=== PATIENT | male | born 1990 | race American Indian/Alaskan Native ===

== ENCOUNTER 2016-10-03 09:07 | Day surgery (SDC) | payer MEDICAID ==
[2016-10-03 09:55] VITALS: BMI 17.8
[2016-10-03] MEDS ORDERED: Propofol 10 mg/ml Inj (20 ML) ONE (12:52)
[2016-10-03] MEDS ORDERED: Lidocaine Hydrochloride 5 ML INJ ONE (12:52)
[2016-10-03 13:33] VITALS: TEMP 98.6
[2016-10-03 13:48] VITALS: O2SAT 98
[2016-10-03 15:54] VITALS: BP 121/67; PULSE 77; RESP 14
== END 2016-10-03 15:10 | disposition home or self-care (01) ==
LOC: C.ENDO 09:07
PROVIDERS: ATTEND Internal Medicine Gastroenterology
DX: K29.50 Unspecified chronic gastritis without bleeding (principal); R10.13 Epigastric pain
CPT/HCPCS: 43239; 88305; 88313; 88342; J2704

== ENCOUNTER 2016-10-12 16:55 | Emergency (ER) | payer MEDICAID ==
[2016-10-12 16:55] VITALS: BMI 17.8
[2016-10-12 17:09] VITALS: BP 103/66; PULSE 66; RESP 16; TEMP 97.8; O2SAT 98
--- NOTE | 2016-10-12 17:29 | C.PDOC ---
History Of Present Illness 26 yo male, hx of gastritis, presents with abdominal pain. pt states pain started yesterday. as per pt, had egd last week. review of records shows previous egd showing gastritis. as per pt, started having cramping and abdominal pain after started triple therapy yesterday. pt attributes pain and cramps to new medications. pt states "he had high fever". pt states had diarrhea. pt reports lower abdominal pain. no n/v Time Seen by Provider: 10/12/16 17:15 Chief Complaint (Nursing): Abdominal Pain Past Medical History Reviewed: Historical Data, Nursing Documentation, Vital Signs Vital Signs: Last Vital Signs Temp 97.8 F 10/12/16 17:03 Pulse 66 10/12/16 17:03 Resp 16 10/12/16 17:03 BP 103/66 10/12/16 17:03 Pulse Ox 98 10/12/16 17:48 - Medical History PMH: Denies: Chronic Kidney Disease Family History: States: Unknown Family Hx - Social History Hx Alcohol Use: No Hx Substance Use: No Review Of Systems Except As Marked, All Systems Reviewed And Found Negative. Gastrointestinal: Positive for: Abdominal Pain, Diarrhea Physical Exam - Physical Exam Appears: Well, No Acute Distress Skin: Normal Color, Warm, Dry Eye(s): bilateral: Normal Inspection, PERRL, EOMI Nose: Normal Throat: Normal Neck: Normal Cardiovascular: Rhythm Regular Respiratory: Normal Breath Sounds Gastrointestinal/Abdominal: Normal Exam, Soft, Tenderness (mild suprapubic. ), No Guarding, No Rebound Back: Normal Inspection Extremity: Normal ROM ED Course And Treatment O2 Sat by Pulse Oximetry: 98 Against Medical Advice - AMA Patient Left Against Medical Advice: The patient declines admission to the hospital and wishes to leave the Emergency Department. This action is against my medical advice. This decision was made with informed refusal. The patient was told that admission to the hospital is necessary. Explanation of the reasons why were discussed. The risks of leaving were explained to the patient and include, but are not limited to, worsening of known or currently unknown conditions, permanent disability and from undiagnosed or untreated conditions. The patient has the capacity to make this informed decision and understands my explanation of the current medical problem and risks of leaving. The patient voluntarily accepts these risks and signed an AMA form documenting our conversation. The patient was given the opportunity to ask questions and reconsider. The patient was encouraged to return to the Emergency Department at any time for further care. Medical Decision Making Medical Decision Making: possible reaction to medications vs gastroenteritis, uti, colitis, appendicitis. - requests labs urine possible imaging. pt refuses, states "he will get lost if he gets home late". advised pt can be related to triple therapy , but would like ot get labs, ivf, urine and possible imaging. pt refuses. conversation via dental chair assembler phone. mague. pt signs AMA Disposition - Disposition Referrals: Camron Villar MD [Staff Provider] - Disposition: AGAINST MEDICAL ADVICE Disposition Time: 17:28 Condition: UNKNOWN Additional Instructions: please follow up with your doctor. you are leaving without labs imaging. you are able to return to er with any concern at any time. Instructions: Acute Abdominal Pain (ED), Against Medical Advice (ED) Forms: Goko (Albanian) - Clinical Impression Clinical Impression: Abdominal pain, Left against medical advice
== END 2016-10-12 17:59 | disposition left against medical advice (07) ==
LOC: C.ER 16:55
DX: R10.9 Unspecified abdominal pain (principal)